=== PATIENT | female | born 1960 | race Two or more races ===

== ENCOUNTER 2017-02-24 21:13 | Emergency (ER) | payer OTHER ==
[~2017-02-24] VITALS: Ht 154.9 cm; Wt 94.4 kg
[2017-02-24] MEDS ORDERED: LORazepam 2 MG/ML, 1ML ONE (21:55)
[2017-02-24] MEDS ORDERED: LORazepam 1MG TABLET ONE (22:00)
[2017-02-24] MEDS ORDERED: MECLIZINE CHEWABLE 25 MG TAB PO ONE (22:00)
[2017-02-24] MEDS ORDERED: LORazepam 1MG TABLET PO ONE (22:00)
[2017-02-24] MEDS ORDERED: ONDANSETRON ODT 4 MG PO ONE (22:00)
[2017-02-24] MEDS ORDERED: MECLIZINE CHEWABLE 25 MG TAB ONE (22:00)
[2017-02-24] MEDS ORDERED: ONDANSETRON ODT 4 MG ONE (22:00)
[2017-02-24] MEDS ORDERED: CIPROFLOXACIN 500 MG TABLET ONE (22:20)
[2017-02-24] MEDS ORDERED: CIPROFLOXACIN 500 MG TABLET PO ONE (22:30)
[2017-02-24 22:33] LABS: HEMOGLOBIN 14.3 g/dL (11.7-16.4); WHITE BLOOD COUNT 10.3 x10^3/uL (3.4-10)
[2017-02-24 22:41] LABS: ASPARTATE AMINO TRANSFERASE 18 U/L (15-37); BLOOD UREA NITROGEN 23 mg/dL (7-18)
[2017-02-24 22:47] LABS: IS PT STATUS REG ER OR PRE ER? YES
[2017-02-24 23:10] VITALS: BP 106/61
== END 2017-02-24 23:13 | disposition home or self-care (01) ==
LOC: ED 22:39
DX: N30.00 Acute cystitis without hematuria (principal); R42 Dizziness and giddiness; R51 Headache
CPT/HCPCS: 36415; 70450; 71010; 80053; 81001; 84484; 85025; 87077; 87086; 87186; 93005; 99285; Q0162